=== PATIENT | male | born 1950 | race Two or more races ===

== ENCOUNTER 2017-06-09 16:30 | Emergency (ER) | payer OTHER ==
[2017-06-09 16:46] VITALS: RESP 16
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
[2017-06-09 17:46] VITALS: O2SAT 92
[2017-06-09 19:17] VITALS: BP 147/79; PULSE 83; TEMP 96.8
== END 2017-06-09 19:12 | disposition home or self-care (01) ==
DX: S52.221A Displaced transverse fracture of shaft of right ulna, initial encounter for closed fracture (principal); S39.012A Strain of muscle, fascia and tendon of lower back, initial encounter; Z87.891 Personal history of nicotine dependence; V48.0XXA Car driver injured in noncollision transport accident in nontraffic accident, initial encounter; Y92.410 Unspecified street and highway as the place of occurrence of the external cause; Y99.8 Other external cause status; Y93.89 Activity, other specified
CPT/HCPCS: A4565